=== PATIENT | male | born 1940 | race Caucasian/White ===

== ENCOUNTER 2017-01-24 15:31 | Inpatient (IN) | payer MEDICARE, OTHER ==
[~2017-01-24] VITALS: Ht 185.4 cm; Wt 78.2 kg
--- NOTE | ~2017-01-24 | ER ---
PATIENT'S NAME: YANNI CHO [facility] AGE: 76 Y [address] ROOM: [place] [address] LOCATION: GPCU ADMIT DATE: 01/24/2017 ER/Outpatient Report DISCHARGE DATE: FAMILY PHYSICIAN: Kirk Lockhart MD ATTENDING PHYSICIAN: KARI BINGHAM CHIEF COMPLAINT: Abnormal screening test. HISTORY OF PRESENT ILLNESS: The patient arrives for evaluation after he received an abnormal carotid screening ultrasound earlier today. He denies any symptoms of headache, vision changes, nausea, vomiting, asymmetry on exam, confusion, speech deficits, or other concerning signs or symptoms. He has no specific complaints otherwise today. He states he is a little anxious and that his blood pressure is a little up, but he has a history of diabetes. He has a history of prostatitis and is on chronic medications for same. No other acute issues. PAST MEDICAL HISTORY: Documented on the record and reviewed by me. SOCIAL HISTORY: Documented on the record and reviewed by me. MEDICATIONS: Documented on the record and reviewed by me. ALLERGIES: DOCUMENTED ON THE RECORD AND REVIEWED BY ME. REVIEW OF SYSTEMS: All systems reviewed and negative except as noted in the HPI. PHYSICAL EXAMINATION: VITAL SIGNS: Vital signs on arrival, blood pressure is 203/88, pulse 74, respiratory rate is 18, temperature 98.3, SpO2 is 96% on room air. Pain 0/10. GENERAL: Age-appropriate male. No obvious pain or distress, anxious appearance, resting comfortably on exam table. NEUROLOGIC: The patient is awake and alert. GCS 15. No focal deficits. No asymmetry. No gait abnormalities. HEENT: Normocephalic, atraumatic. Eyes are PERRL. Oropharynx is clear. NECK: Supple. Trachea is midline. CHEST: Heart is regular rate and rhythm with no murmurs. LUNGS: Clear to auscultation bilaterally. No rhonchi, wheezes, or rales. PATIENT'S NAME: YANNI CHO [facility] AGE: 76 Y [address] ROOM: [place] [address] LOCATION: GPCU ADMIT DATE: 01/24/2017 ER/Outpatient Report DISCHARGE DATE: FAMILY PHYSICIAN: Kirk Lockhart MD ATTENDING PHYSICIAN: KARI BINGHAM ABDOMEN: Soft, nontender, and nondistended. No rebound or guarding. BACK: Nontender to palpation throughout. No CVA tenderness. EXTREMITIES: Warm, well perfused. No obvious abnormalities. SKIN: Clean, dry, and intact with no obvious rashes or breakdown. LABS AND X-RAYS: Bilateral carotid Dopplers reveal severe left-sided stenosis. CTA reveals same. Labs were obtained with no obvious abnormalities. IMPRESSION: Severe left carotid stenosis requiring intervention. EMERGENCY DEPARTMENT COURSE: The patient was seen and evaluated as above. Ultrasound and CTA were obtained. The patient will need to go to the operating room with Dr. Bingham for further evaluation and carotid endarterectomy. The patient had no symptoms in the ER. Blood pressure improved as he calmed down. He will be taken to the operating room for this procedure today. MD JUSTINE GUPTA/don /[id number] d: 01/26/17 1136 t: 02/01/17 0951, OUTPATIENT REPORT
--- NOTE | ~2017-01-24 | CON ---
PATIENT'S NAME: YANIN CHO [facility] AGE: 76 Y [address] ROOM: [place] [address] LOCATION: GPCU ADMIT DATE: 01/24/2017 Consultation DISCHARGE DATE: FAMILY PHYSICIAN: Kirk Lockhart MD ATTENDING PHYSICIAN: KARI WILKINS DATE OF CONSULTATION: 01/24/2017 REFERRING PHYSICIAN: EBER SHORT MD CONSULTING PHYSICIAN: Dr. Dodge. REASON FOR CONSULTATION: Medical management. HISTORY OF PRESENT ILLNESS: The patient is a 76-year-old male who was found to have a 99% left internal carotid artery stenosis on [facility] screening earlier today. He has undergone an uncomplicated left internal carotid endarterectomy; and at this point, he is resting comfortably in the hospital. A Hospitalist consult was requested for medical management. The patient and his family report that aside from fmw-oqetnye-dylbjicqx diabetes and benign prostatic hyperplasia, he does not have any other medical problems. He reports very good exercise tolerance and still actively hunts and walks his dogs. He denies ever developing chest pain, shortness of breath, nausea, vomiting, diarrhea, diaphoresis, or focal neurologic deficits. REVIEW OF SYSTEMS: All systems have been reviewed and are negative aside from pertinent positives as mentioned above. PAST MEDICAL HISTORY: 1. Wpf-bnhvzmj-dvkiayhjx diabetes. 2. Benign prostatic hyperplasia. PAST SURGICAL HISTORY: No recent surgeries. CURRENT MEDICATIONS: 1. Metformin. 2. Sulfonylurea. 3. Flomax. 4. Bactrim for UTI suppression. PATIENT'S NAME: YANNI CHO [facility] AGE: 76 Y [address] ROOM: [place] [address] LOCATION: GPCU ADMIT DATE: 01/24/2017 Consultation DISCHARGE DATE: FAMILY PHYSICIAN: Kirk Lockhart MD ATTENDING PHYSICIAN: KARI WILKINS FAMILY HISTORY: Reviewed and is noncontributory due to known underlying etiology for his presentation. SOCIAL HISTORY: Negative for any history of ongoing toxic habits. PHYSICAL EXAMINATION: VITAL SIGNS: At this point, his vital signs are blood pressure of 150s- 160s/80s, heart rate is in high 50s and regular, saturating 98% on room air, temperature is afebrile, and respirations 16. GENERAL: Appears as a well-developed, well-nourished, elderly male, in no acute distress. NEUROLOGIC: Exam is nonfocal. EYES: Exam shows pupils are equal and reactive to light. LYMPHATIC: Exam shows no cervical lymphadenopathy. ENDOCRINE: Exam shows no thyromegaly. LUNGS: Clear to auscultation. HEART: Rate is slightly bradycardic and regular with slightly diminished heart sounds. No JVD or lower extremity edema. GI: Abdomen is soft, nontender, nondistended. : No costovertebral angle tenderness. VASCULAR: A 2+ pedal pulses bilaterally. MUSCULOSKELETAL: No muscle or joint abnormalities. SKIN: Warm and dry. A nonbulging left internal carotid dressing is appreciated. PSYCHIATRIC: Exam reveals appropriate mood, cognition, and affect. LABORATORY DATA: Review of studies shows an Accu-Chek of 155, unremarkable basic metabolic profile, and unremarkable CBC. IMPRESSION AND RECOMMENDATIONS: This is a 76-year-old male, postop day 0, for left internal carotid endarterectomy. Individual problems to be followed is as follows: 1. Blood pressure control. We will put the patient on small dose of hydralazine as needed. He may require future control of his blood pressure, but we will defer from starting him on any permanent agents. 2. Rqh-jxrkgvs-vykbwwsrt diabetes. We will hold off on his metformin as he did have a CTA. We will put him on a sliding scale as needed. 3. We will check the patient's lipids and hemoglobin A1c as he will likely require tighter control of his blood pressure, lipids, and diabetes. 4. Cerebrovascular disease as a coronary artery disease equivalent. We will get a 2-dimensional echocardiogram and request a Cardiology evaluation given the severity of his cerebrovascular disease. PATIENT'S NAME: YANNI CHO [facility] AGE: 76 Y [address] ROOM: [place] [address] [facility] ADMIT DATE: 01/24/2017 Consultation DISCHARGE DATE: FAMILY PHYSICIAN: Kirk Lockhart MD ATTENDING PHYSICIAN: KARI WILKINS Additional management will depend on clinical course. Time dedicated to this patient's encounter is 35 minutes. MD HOMERO PA/modl /[id number] d: 01/25/17250 t: 01/28/172039, CONSULTATION REPORT
--- NOTE | ~2017-01-24 | OR ---
PATIENT'S NAME: YANNI CHO [facility] AGE: 76 Y [address] ROOM: [address] [address] [facility] ADMIT DATE: 01/24/2017 OR/Procedure Report DISCHARGE DATE: FAMILY PHYSICIAN: Kirk Lockhart MD ATTENDING PHYSICIAN: NIKITA BINGHAM SURGEON: Nikita Bingham MD SAVINGS COUNSELOR: DATE OF PROCEDURE: 01/24/2017 PREOPERATIVE DIAGNOSIS: Near occlusive lesion of the left ICA. POSTOPERATIVE DIAGNOSIS: Near occlusive lesion of the left ICA. PROCEDURE: Left carotid endarterectomy with bovine pericardial patch. QUILT MAKER: Joan Gurrola. ANESTHESIA: General. ESTIMATED BLOOD LOSS: 100 mL. OPERATIVE FINDINGS: Neurologically intact and high-grade near occlusive lesion of the left ICA. DESCRIPTION OF PROCEDURE: The patient was brought to operating room, placed supine on the operating room table, prepped and draped in a sterile manner. Preoperative time-out was performed. The patient received preoperative antibiotics. We made an incision along the anterior border of the sternocleidomastoid muscle. We dissected down until we found the internal jugular, transected, and ligated the facial vein. Retracted it laterally. Dissected out the common, external, internal, and superior thyroid. We placed a clip on the superior thyroid, and then we clamped on all 3 major vessels. After administering 5000 units of heparin, we made arteriotomy from the common to the internal using an 11 blade and Abreu scissors. We then passed a 5 x 3 Sundt shunt. Flow was confirmed using Doppler. We removed the plaque in its entirety. We then did a standard bovine pericardial patch using two running 6- 0 Blackstone sutures. Before completing the anastomosis, we clamped and removed the shunt. We allowed for backbleeding from the internal as well as flushing from the common. We completed anastomosis, removed the clamps, waited 10 heartbeats, and removed the clamp from the internal. Heparin was reversed with use of Protamine. Thrombin was used locally in the wound. Deep layers were closed with 2-0 and 3-0 Vicryl. The skin was closed with running 4-0 Monocryl. The patient tolerated the procedure well, awoke in the operating room. Able to move all extremities. Neurologically intact. PATIENT'S NAME: YANNI CHO [facility] AGE: 76 Y [address] ROOM: [address] [place], [place] [address] [facility] ADMIT DATE: 01/24/2017 OR/Procedure Report DISCHARGE DATE: FAMILY PHYSICIAN: Kirk Lockhart MD ATTENDING PHYSICIAN: NIKITA BINGHAM NIKITA BINGHAM MD FKM/modl /[id number] d: 01/25/17235 t: 01/27/17 1001, OPERATIVE SUMMARY
--- NOTE | ~2017-01-24 | CON ---
PATIENT'S NAME: YANNI CHO [facility] AGE: 76 Y [address] ROOM: [place] [address] LOCATION: GPCU ADMIT DATE: 01/24/2017 Consultation DISCHARGE DATE: FAMILY PHYSICIAN: Kirk Lockhart MD ATTENDING PHYSICIAN: KARI WILKINS REFERRING PHYSICIAN: EBER SHORT MD HISTORY OF PRESENT ILLNESS: A 76-year-old male who had a carotid endarterectomy on January 24. Postoperatively, he has had marked difficulty voiding; voiding only in small amounts. His bladder scan revealed residual urine greater than 1000 mL. He has a past history of having BPH with voiding symptoms and recurrent prostatocystitis, bacterial. He was first seen here in February 2015. He gave a history of being admitted to [facility] with sepsis from a urinary tract infection, treated with Levaquin. He was then placed on long-term low-dose antimicrobial treatment and Flomax. He had recurrent prostatocystitis in 2014 and 2015. Since then, he has been on Bactrim DS 1/2 tablet at bedtime. His PSAs have been in the range of 4.9. PHYSICAL EXAMINATION: GENERAL: A well-developed, well-nourished male. ABDOMEN: Soft. There is tenderness and fullness in the suprapubic area. GENITOURINARY: Normal penis. Testicles are normal. Prostate is enlarged, smooth, and benign to palpation. IMPRESSION: 1. Benign prostatic hypertrophy with bladder neck obstruction. 2. Urinary retention. 3. Prostatocystitis, recurrent. RECOMMENDATIONS: A 16-Syriac Zheng catheter was inserted without difficulty. He had over 1000 mL residual urine volume. We will increase his Flomax to 0.4 mg b.i.d., and then he will go home with a Zheng catheter, and we will remove it early on the morning of January 30, and I will see him in the office at that time. PATIENT'S NAME: YANNI CHO [facility] AGE: 76 Y [address] ROOM: [place] [address] LOCATION: GPCU ADMIT DATE: 01/24/2017 Consultation DISCHARGE DATE: FAMILY PHYSICIAN: Kirk Lockhart MD ATTENDING PHYSICIAN: KARI WILKINS SAHIL MD AJAY THORPE/don /[id number] d: 01/25/17 1756 t: 01/26/17 0440, CONSULTATION REPORT
--- NOTE | ~2017-01-24 | HP ---
PATIENT'S NAME: YANNI CHO [facility] AGE: 76 Y [address] ROOM: [place] [address] LOCATION: GPCU ADMIT DATE: 01/24/2017 History & Physical DISCHARGE DATE: FAMILY PHYSICIAN: Kirk Lockhart MD ATTENDING PHYSICIAN: KARI BINGHAM DATE OF SERVICE: 01/24/2017 CHIEF COMPLAINT: Critical carotid stenosis on health screening requiring emergent left carotid artery endarterectomy. HISTORY OF PRESENTING ILLNESS: This is a 76-year-old, male, currently admitted to [facility] after undergoing a left carotid artery endarterectomy with Dr. Bingham. Yesterday, the patient went to a local health screening and was found to have critical stenosis of the left internal carotid artery. He did present to the ER and an ultrasound here revealed velocities of 524/141 in the left ICA. The patient subsequently had a CTA of the carotid, which revealed a 99% stenosis, near occlusion of the left ICA. The patient is asymptomatic and had no previous episodes of vision changes, speech changes, or weakness. No history of TIA. The patient reports occasional cigar use. History of vqo-dsvacse-ebirdqyrt diabetes mellitus. He denies any shortness of breath, chest pain, nausea, vomiting, or diarrhea. Denies abdominal pain. Denies claudication. Denies any history of DVT. Denies any edema or varicosities. The patient is currently on no aspirin or cholesterol medication. The pain is currently controlled to the left neck. He denies any headache. There has been concern of elevated blood pressures in the night. The patient has received p.r.n. hydralazine. PAST MEDICAL HISTORY: Enlarged prostate with elevated PSA. SURGICAL HISTORY: 1. Appendectomy. 2. Hip repair in 1964. 3. Ankle pinning in 1969. FAMILY HISTORY: Mother with breast cancer and ovarian cancer. SOCIAL HISTORY: The patient reports history of cigar use. He drinks 3 alcoholic beverages 3 nights a week. He denies any illegal drug use. PATIENT'S NAME: YANNI CHO [facility] AGE: 76 Y [address] ROOM: [place] [address] LOCATION: GPCU ADMIT DATE: 01/24/2017 History & Physical DISCHARGE DATE: FAMILY PHYSICIAN: Kirk Lockhart MD ATTENDING PHYSICIAN: KARI BINGHAM ALLERGIES: NO KNOWN DRUG ALLERGIES. CURRENT MEDICATIONS: See medication reconciliation. REVIEW OF SYSTEMS: A 10-point review of systems completed, positives addressed in the history of presenting illness. PHYSICAL EXAMINATION: VITAL SIGNS: Temperature 98.1, heart rate 62, respiratory rate 16, blood pressure 165/66, and oxygen saturation is 97%. GENERAL: The patient is alert and oriented x3, and in no acute distress. SKIN: Warm, pink, and dry without rashes. Incision to the left neck clean, dry, and intact without drainage or surrounding erythema. HEENT: Head: Normocephalic and atraumatic. Ears without drainage. Eyes: Sclerae white. Conjunctivae pink. Extraocular movements intact. PERRLA. Nose: Without drainage. Throat: Oral mucosa pink and moist. No exudate or erythema. NECK: Without adenopathy. No evidence of JVD. No carotid bruit. Trachea midline. Incision intact. RESPIRATORY: Clear to auscultation bilaterally. Even and nonlabored. CARDIOVASCULAR: Regular rate and rhythm. No murmurs or extra sounds. GASTROINTESTINAL: Bowel sounds are active x4. Soft and nontender. No organomegaly. EXTREMITIES: Radial, dorsalis pedis, and posterior tibialis 2+ on palpation. No cyanosis, no edema. Warm to touch. No ulcerations or varicosities present. NEUROLOGICAL: The patient does have mild tongue deviation to the left; otherwise, no neurological deficits. LABORATORY DATA: Chemistry: Sodium 141, potassium 4.5, chloride 110, CO2 23, BUN 18, creatinine 1.3, and glucose 213. Hematology: White blood cell count 6.9, hemoglobin 12.2, hematocrit 37.4, and platelets 154. IMPRESSION AND PLAN: Left carotid artery stenosis, postoperative left carotid artery endarterectomy with Dr. Bingham. The patient is without neurological deficit. There is hypoglossal injury with some deviation. However, the patient denies any problems with swallowing or speech. No vision changes or strength changes. The patient is currently on no aspirin or Plavix. We will go ahead and start Plavix daily. Site intact without hematoma, continue to monitor. No signs or symptoms of infection. The patient denies any chest pain or shortness of PATIENT'S NAME: YANNI CHO [facility] AGE: 76 Y [address] ROOM: [place] [address] [facility] AD[facility] DATE: 01/24/2017 History & Physical DISCHARGE DATE: FAMILY PHYSICIAN: Kirk Lockhrat MD ATTENDING PHYSICIAN: KARI BINGHAM; however, Cardiology is currently evaluating the patient for coronary artery disease due to recent findings of carotid artery disease. The patient with hypertension postoperatively, he has had some problems with urination, and blood pressures have been elevated prior to urinating. Receiving p.r.n. hydralazine, goal to keep systolic blood pressure less than 150. TOÑARolf BAHENA APRN FOR KARI BINGHAM MD TO/modl /[id number] D: [id number] T: HISTORY & PHYSICAL
--- NOTE | ~2017-01-24 | CON ---
PATIENT'S NAME: YANNI CHO [facility] AGE: 76 Y [address] ROOM: [id number] [place], [place] [address] LOCATION: GPCU ADMIT DATE: 01/24/2017 Consultation DISCHARGE DATE: FAMILY PHYSICIAN: Kirk Lockhart MD ATTENDING PHYSICIAN: KARI WILKINS DATE OF CONSULTATION: 01/25/2017 REFERRING PHYSICIAN: ALEXANDREA SHORT MD CARDIOLOGY CONSULT REASON FOR CARDIOLOGY CONSULT: Coronary artery disease equivalent with carotid artery stenosis. HISTORY OF PRESENT ILLNESS: This is a 76-year-old male, who underwent a carotid screening yesterday at his health fair. He was found to have left carotid stenosis and was subsequently told to present to the emergency department for a CTA. The CTA of his carotid showed a 99% left internal carotid artery, and at the time of this dictation, he is currently status post a left carotid endarterectomy. He denies any chest pain, shortness of breath, dyspnea on exertion, palpitations, dizziness, presyncope, or syncope. He also denies nausea or vomiting. He states he is very active and walks multiple miles a day with his 6 dogs without any difficulties noted. His past medical history is positive for diabetes mellitus type 2 as well as BPH. There is a family history of diabetes mellitus in both parents. His social history is positive for social alcohol use rarely. He denies smoking or illicit drug use. Past medical, family, and his social history as listed in the HPI. CURRENT MEDICATIONS: 1. Ancef 2 g IV every 8 hours. 2. Amaryl 4 mg p.o. daily. 3. Fish oil 1000 mg p.o. daily. 4. Flomax 0.4 mg p.o. twice daily. 5. Lipitor 40 mg p.o. daily in the evening. 6. Os-Toni 500 mg p.o. daily. 7. Plavix 75 mg p.o. daily. 8. Multivitamin 1 tablet p.o. daily. 9. Multivitamin with Beta-carotene 1 tablet p.o. daily. 10. Vitamin A 10,000 units p.o. daily. 11. Vitamin C 500 mg p.o. daily. 12. Vitamin D 400 units p.o. daily. 13. Lovenox 40 mg subcu daily. 14. NovoLog subcu on a mild sliding scale per a.c., h.s. Accu-Cheks. PATIENT'S NAME: YANNI CHO [facility] AGE: 76 Y [address] ROOM: [address] [place], [place] [address] LOCATION: GPCU ADMIT DATE: 01/24/2017 Consultation DISCHARGE DATE: FAMILY PHYSICIAN: Kirk Lockhart MD ATTENDING PHYSICIAN: KARI WILKINS MEDICATION ALLERGIES: No known medication allergies. REVIEW OF SYSTEMS: Pertinent positive review of systems listed in the HPI. All other review of systems evaluated and negative. DIAGNOSTICS: CMS evaluation shows sodium of 141, potassium 4.5, BUN of 18, creatinine 1.2, glucose of 213. He has a hemoglobin A1c of 7.0. Lipid evaluation shows a total cholesterol of 185, triglycerides 90, HDL 53, and LDL of 114. PHYSICAL EXAMINATION: VITAL SIGNS: Temperature 98.1, pulse 62, respirations 16, blood pressure 165/66, and O2 saturation 97% on room air. The patient weighs 78.2 kg. SKIN: [place], warm, and dry. EYES: Sclerae clear. No xanthelasmas. ENT: Oral mucosa is pink and moist. No jugular venous distention noted. CHEST: Respirations are even and unlabored. LUNGS: Clear to auscultation. HEART: Regular rate and rhythm. Normal S1, S2. No murmurs, rubs, or gallops. ABDOMEN: Soft, nontender. MUSCULOSKELETAL: Gait is normal. EXTREMITIES: Peripheral pulses palpable. No clubbing, cyanosis, or edema. PSYCH: Alert and oriented. Mood and affect are appropriate. IMPRESSION AND PLAN: Per Dr. Alexandrea Short: 1. Coronary artery disease equivalent with carotid stenosis. We will check an echocardiogram to fully evaluate ejection fraction as well as look for wall motion and valvular abnormalities. No current signs or symptoms of acute coronary syndrome, angina, or congestive heart failure. 2. Dyslipidemia. His LDL goal should be less than 70, and we will recommend a statin. 3. Hypertension. If his blood pressure continues to run high, we will recommend an JAMIL inhibitor being that this is a good choice given his carotid stenosis. 4. Urinary retention. Currently status post a Zheng insertion with a 1000 mL urine output noted. 5. Status post left carotid endarterectomy. Per Vascular Surgery. 6. Diabetes mellitus type 2. 7. Benign prostatic hyperplasia. We will continue to monitor, evaluate, and treat as appropriate. PATIENT'S NAME: YANNI CHO [facility] AGE: 76 Y [address] ROOM: [address] [place], [place] [address] [facility] ADMIT DATE: 01/24/2017 Consultation DISCHARGE DATE: FAMILY PHYSICIAN: Kirk Lockhart MD ATTENDING PHYSICIAN: KARI WILKINS Thank you for this consult. Thank for allowing [facility] to interact in the care of this patient. FERNANDO JOHNSON APRN FOR MD ROSALIE BARNEY/don /[id number] d: 01/25/172048 t: 01/27/17 1550, CONSULTATION REPORT
--- NOTE | ~2017-01-24 | ENPV ---
Carotid Duplex Study Demographics Patient Name YANNI CHO Date of Study 01/24/2017 Patient Number [id number] Gender Male Date of 1940 Age 76 Visit Number [id number] Height 73 Accession Number [id number] Weight 172 Referring Richy Shelton MD Physician John Allen MD Physician Physician Ordering Physician John Allen MD Area Captain Bench Technician Ivonne Raul [facility], [facility] Conclusions Summary The right internal carotid artery has mild, 1-39%, plaque and stenosis. The right vertebral artery is present with antegrade flow. The left internal carotid artery has critical, 80-99%, plaque and stenosis. The left vertebral artery is present with antegrade flow. The left subclavian artery has elevated velocities of 375 cm/s. Critical left ICA stenosis needs urgent endart. Procedure Type of Study: Cerebral:Carotid, Carotid Doppler Bilateral. Indications for Study:Carotid Bruit. Additional Indications:positive lifeline screening Appropriate Use Criteria:9 Blood Pressure:Right arm 171/77 mmHg. Study Location:ER. Technical Quality:Adequate visualization. Velocities are measured in cm/s ; Diameters are measured in cm Carotid Right Measurements Carotid Left Measurements + +--------+--------+ + + + +--------+ --------+ + + !Location !PSV !EDV !Angle !%Stenosis ! !Location !PSV ! EDV !Angle !%Stenosis ! + +--------+--------+ + + + +--------+ --------+ + + !Prox CCA !115 !14 !60 ! ! !Prox CCA !134 ! 18 !60 ! ! + +--------+--------+ + + + +--------+ --------+ + + !Dist CCA !87 !13 !60 ! ! !Dist CCA !70 ! 14 !60 ! ! + +--------+--------+ + + + +--------+ --------+ + + !Prox ICA !72 !18 !60 ! ! !Prox ICA !524 ! 141 !60 ! ! + +--------+--------+ + + + +--------+ --------+ + + !Dist ICA !61 !14 !60 ! ! !Mid ICA !49 ! 16 !60 ! ! + +--------+--------+ + + + +--------+ --------+ + + !Prox ECA !152 ! !60 ! ! !Dist ICA !38 ! 13 !60 ! ! + +--------+--------+ + + + +--------+ --------+ + + !Vertebral !66 !15 !60 ! ! !Prox ECA !147 ! !60 ! ! + +--------+--------+ + + + +--------+ --------+ + + !Subclavian !192 ! !60 ! ! !Vertebral !52 ! 13 !60 ! ! + +--------+--------+ + + + +--------+ --------+ + + !Subclavian !375 ! !60 ! ! + +--------+ --------+ + + - There is antegrade vertebral flow noted on the right side. - There is antegrade verte bral flow noted on the left side. - Add'l Measurements:ICAPSV/CCAPSV 0.63.ICAEDV/CCAEDV 1.29. - Add'l Measurements:ICAPS V/CCAPSV 3.91.ICAEDV/CCAEDV 7.83. Impressions Right Impression There is a mild amount of smooth heterogeneous plaque in the right internal carotid artery . Left Impression There is a severe degree of smooth heterogeneous plaque in the left internal carotid artery . Signature dtt: AKRI WILKINS dtd: 01/24/17 1605 Physician Self Edit
--- NOTE | ~2017-01-24 | ECHO ---
Transthoracic Echocardiography Report (TTE) Demographics Patient Name YANNI CHO Date of Study 01/25/2017 Patient Number [id number] Visit Number [id number] Date of 1940 Room Number G6329 Accession Number [id number] Gender Male Age 76 year(s) Referring Hervert Kirk Gregorio Automatic Print Developer Екатерина Ibanez RVT, Physician MD LUCIEN Shelton Physician Interpreting Everardo Lechuga Transportation Director Physician Supervising Ordering Physician Dar Regalado MD/FELIPA PEDRO Nurse Stress Play Reader Conclusions Contractility Score Summary Normal Left Ventricular contractility was noted. Summary The estimated left ventricular ejection fraction is 55-60%. Moderate concentric left ventricular hypertrophy. Diastolic assessment reveals Grade I diastolic dysfunction. No significant valvular abnormalities. Procedure Type of Study TTE procedure:2D Echocardiogram. Procedure Date Date: 01/25/2017 Start: 07:39 AM Study Location: [employer] Technical Quality: Adequate visualization Indications:Coronary artery disease. Appropriate Use Criteria: 8 Patient Status: Routine Rhythm: Sinus bradycardia HR: 52 bpm BP: 168/71 mmHg M-Mode/2D Measurements LV Diastolic Dimension: 3.56 cm LV Systolic Dimension: 2.66 cm LV Septum Diastolic: 1.64 cm LV PW Diastolic: 1.41 cm AO Root Dimension: 2.3 cm Cardiac Output: 5.08 l/min AV Cusp Separation: 2 cm RV Diastolic Dimension: 3.19 cm LA volume: 57 ml LVOT: 2.5 cm RV Base: 3.11 cm LVOT VTI: 19.9 cm RV Mid: 3.03 cm LV Stroke volume: 97.63 ml TAPSE: 2.52 cm TDI-S': 12.3 cm/s Doppler Measurements AV Peak Velocity: 0.96 m/s MV Peak E-Wave: 0.59 m/s AV Peak Gradient: 3.66 mmHg MV Peak A-Wave: 0.7 m/s AV Mean Gradient: 2 mmHg MV E/A Ratio: 0.85 LVOT Peak Velocity: 0.77 m/s MV P1/2t: 103 msec TR Gradient:5.66 mmHg PV Peak Velocity: 0.69 m/s Estimated RAP:5 mmHg PV Peak Gradient: 1.92 mmHg Estimated RVSP: 11 mmHg Estimated PASP: 10.66 mmHg E' Septal Velocity: 0.05 m/s A' Septal Velocity: 0.12 m/s E' Lateral Velocity: 0.08 m/s A' Lateral Velocity: 0.17 m/s Findings Left Ventricle Moderate concentric left ventricular hypertrophy. Diastolic assessment reveals Grade I diastolic dysfunction. Right Ventricle Normal right ventricle structure and function. Left Atrium Normal left atrial size. There is no evidence of patent foramen ovale or atrial septal defect by color Doppler. Right Atrium Normal right atrial size. No subcostal images, unable to visualize IVC. Mitral Valve Normal mitral valve structure and function. Aortic Valve Normal aortic valve structure and function. Tricuspid Valve Normal tricuspid valve structure and function. Trivial tricuspid regurgitation by color Doppler. Pulmonic Valve Normal pulmonic valve structure and function. Pericardial Effusion No evidence of pericardial effusion. Miscellaneous The ascending aorta appears mildly dilated. The maximum diameter measures 3.5 cm. Suboptimal subcostal window to evaluate the IVC and interatrial septum. Pleural Effusion No evidence of pleural effusion. Contractility Score LV regional wall motion:(0-Non visualized 1-Normal 2-Hypokinesis 3-Akinesis 4-Dyskinesis 5-Aneurysm) Signature dtt: EBER SHORT dtd: 01/25/17 0739 Physician Self Edit
[2017-01-24 16:11] LABS: BASOPHIL % 0.8 %; EOSINOPHIL # 0.1 K/uL (0.0-0.5); EOSINOPHIL % 2.5 %; HEMATOCRIT 40.1 % (37.0-53.0); HEMOGLOBIN 13.4 g/dL (11.0-16.0); IMMATURE GRANULOCYTE % 0.2 %; LYMPHOCYTE # 1.1 K/uL (0.8-4.0); LYMPHOCYTE % 23.5 %; MCH 30.6 pg (27.0-34.0); MCHC 33.4 gm/dL (32.0-36.5); MCV 91.6 fl (83.0-98.0); MONOCYTE # 0.4 K/uL (0.0-1.0); MONOCYTE % 9.1 %; MPV 9.4 fl (9.4-12.4); NEUTROPHIL # (ANC) 3.1 K/uL (1.4-9.0); NEUTROPHIL % 63.9 %; NRBC % 0 /100WBC (0-0.00); PLATELET COUNT 180 K/uL (150-450); RBC 4.38 M/uL (3.50-5.50); RDW-CV 12.5 % (11.9-14.6); WBC 4.8 K/uL (4.0-11.0)
[2017-01-24 16:21] LABS: INR - (THERAPEUTIC) 0.95 (0.92-1.07); PTT 25 SECONDS (25-32)
[2017-01-24 16:32] LABS: ALBUMIN 3.8 gm/dL (3.5-5.0); ANION GAP 12.3 (10.0-19.0); CALCIUM 8.6 mg/dL (8.5-10.5); CREATININE 1.3 mg/dL (0.6-1.3); POTASSIUM 4.3 mMol/L (3.7-5.1); TOTAL BILIRUBIN 0.4 mg/dL (0.0-1.5); TOTAL PROTEIN 6.8 g/dL (6.0-8.4)
[2017-01-24] MEDS ORDERED: FLOMAX0.4 MG PO (22:55)
[2017-01-24] MEDS ORDERED: AMARYL4 MG PO (22:55)
[2017-01-24] MEDS ORDERED: GLUCOPHAGE1000 MG PO (22:56)
[2017-01-24] MEDS ORDERED: BACTRIM DS1 TAB PO (22:57)
[2017-01-24] MEDS ORDERED: MOTRIN800 MG PO (22:58)
[2017-01-24] MEDS ORDERED: VITAMIN A10000 UNIT PO (22:59)
[2017-01-24] MEDS ORDERED: ASCORBIC ACID500 MG PO (22:59)
[2017-01-24] MEDS ORDERED: FLAXSEED1000 MG PO (23:00)
[2017-01-24] MEDS ORDERED: FISH OIL 1,2001 EACH PO (23:00)
[2017-01-24] MEDS ORDERED: EYE HEALTH ADU1 EACH PO (23:02)
[2017-01-24] MEDS ORDERED: CENTRUM SILVER1 EAC5 PO (23:06)
[2017-01-24] MEDS ORDERED: CINNAMON500 MG PO (23:06)
[2017-01-24] MEDS ORDERED: OSCAL500 MG PO (23:07)
[2017-01-24] MEDS ORDERED: VITAMIN D-40400 UNIT PO (23:08)
[2017-01-24] MEDS ORDERED: CO Q-10 100 MG1 EACH PO (23:10)
[2017-01-25 05:19] LABS: ANION GAP 12.5 (10.0-19.0); CREATININE 1.2 mg/dL (0.6-1.3); POTASSIUM 4.5 mMol/L (3.7-5.1)
[2017-01-25 05:56] LABS: BASOPHIL % 0.3 %; EOSINOPHIL # 0.1 K/uL (0.0-0.5); EOSINOPHIL % 0.7 %; HEMATOCRIT 37.4 % (37.0-53.0); HEMOGLOBIN 12.2 g/dL (11.0-16.0); IMMATURE GRANULOCYTE % 0.1 %; LYMPHOCYTE # 1.1 K/uL (0.8-4.0); LYMPHOCYTE % 16.5 %; MCH 30.3 pg (27.0-34.0); MCHC 32.6 gm/dL (32.0-36.5); MONOCYTE # 0.7 K/uL (0.0-1.0); MONOCYTE % 9.4 %; MPV 9.7 fl (9.4-12.4); NRBC % 0 /100WBC (0-0.00); PLATELET COUNT 154 K/uL (150-450); RBC 4.02 M/uL (3.50-5.50); RDW-CV 12.7 % (11.9-14.6); WBC 6.9 K/uL (4.0-11.0)
[2017-01-26 05:49] LABS: BASOPHIL % 0.3 %; EOSINOPHIL # 0.1 K/uL (0.0-0.5); EOSINOPHIL % 1.2 %; HEMATOCRIT 40.8 % (37.0-53.0); HEMOGLOBIN 13.4 g/dL (11.0-16.0); IMMATURE GRANULOCYTE % 0.3 %; LYMPHOCYTE # 1.1 K/uL (0.8-4.0); LYMPHOCYTE % 16.8 %; MCH 30.7 pg (27.0-34.0); MCHC 32.8 gm/dL (32.0-36.5); MCV 93.4 fl (83.0-98.0); MONOCYTE # 0.7 K/uL (0.0-1.0); MONOCYTE % 10.5 %; MPV 9.6 fl (9.4-12.4); NEUTROPHIL # (ANC) 4.8 K/uL (1.4-9.0); NEUTROPHIL % 70.9 %; NRBC % 0 /100WBC (0-0.00); PLATELET COUNT 154 K/uL (150-450); RBC 4.37 M/uL (3.50-5.50); RDW-CV 12.7 % (11.9-14.6); WBC 6.7 K/uL (4.0-11.0)
[2017-01-26 06:12] LABS: ALBUMIN 3.6 gm/dL (3.5-5.0); BLOOD UREA NITROGEN 11 mg/dL (6-24); CALCIUM 8.3 mg/dL (8.5-10.5); CHLORIDE 110 mMol/L (96-110); CO2 24 mMol/L (22-32); ESTIMATED GFR (MDRD EQUATION) > 60; PHOSPHORUS 2.4 mg/dL (2.5-4.9); SODIUM 143 mMol/L (135-145)
[2017-01-26] MEDS ORDERED: NORVASC5 MG PO (13:15)
[2017-01-26] MEDS ORDERED: LIPITOR40 MG PO (13:16)
[2017-01-26] MEDS ORDERED: PLAVIX75 MG PO (13:18)
[2017-01-26] MEDS ORDERED: LOPRESSOR25 MG PO (13:20)
[2017-01-26] MEDS ORDERED: NORCO 5-325 TA1 EACH PO (13:25)
== END 2017-01-26 17:00 | disposition disaster alternative care site (69) | DRG 38 ==
LOC: GMED 15:31 → GPCU 17:33
PROVIDERS: Emergency Medicine; Family Medicine; ADMIT Surgery Vascular Surgery
PROC: 03UL0KZ Supplement Left Internal Carotid Artery with Nonautologous Tissue Substitute, Open Approach (ICD-10-PCS; principal; 2017-01-24)
PROC: 03CL0ZZ Extirpation of Matter from Left Internal Carotid Artery, Open Approach (ICD-10-PCS; principal; 2017-01-24)
DX: I65.22 Occlusion and stenosis of left carotid artery (principal); N13.8 Other obstructive and reflux uropathy; E11.9 Type 2 diabetes mellitus without complications; R31.0 Gross hematuria; T83.9XXA Unspecified complication of genitourinary prosthetic device, implant and graft, initial encounter; N40.1 Benign prostatic hyperplasia with lower urinary tract symptoms; R33.8 Other retention of urine; N41.3 Prostatocystitis; I25.10 Atherosclerotic heart disease of native coronary artery without angina pectoris; E78.5 Hyperlipidemia, unspecified; I10 Essential (primary) hypertension; Z87.891 Personal history of nicotine dependence; Z79.84 Long term (current) use of oral hypoglycemic drugs
CPT/HCPCS: J0360; J0690; J1644; J1650; J2270; J2720; J3010; J3480; J7030

== ENCOUNTER → 2017-04-24 | Outpatient (CLI) | payer MEDICARE, OTHER ==
[~2017-04-24] MED LIST: AMARYL4 MG PO; ASCORBIC ACID500 MG PO; BACTRIM DS1 TAB PO; CENTRUM SILVER1 EAC5 PO; CINNAMON500 MG PO; CO Q-10 100 MG1 EACH PO; EYE HEALTH ADU1 EACH PO; FISH OIL 1,2001 EACH PO; FLAXSEED1000 MG PO; FLOMAX0.4 MG PO; GLUCOPHAGE1000 MG PO; LIPITOR40 MG PO; LOPRESSOR25 MG PO; MOTRIN800 MG PO; NORCO 5-325 TA1 EACH PO; NORVASC5 MG PO; OSCAL500 MG PO; PLAVIX75 MG PO; VITAMIN A10000 UNIT PO; VITAMIN D-40400 UNIT PO
[2017-04-24 09:52] LABS: ALBUMIN 4.1 gm/dL (3.5-5.0); CREATININE 1.2 mg/dL (0.6-1.3); TOTAL PROTEIN 7.2 g/dL (6.0-8.4)
[2017-04-24 09:54] LABS: ANION GAP 11.6 (10.0-19.0); POTASSIUM 4.6 mMol/L (3.7-5.1); TOTAL BILIRUBIN 0.6 mg/dL (0.0-1.5)
== END ==
LOC: LNHI 09:36
PROVIDERS: Internal Medicine Interventional Cardiology
DX: E78.5 Hyperlipidemia, unspecified (principal); I10 Essential (primary) hypertension